=== PATIENT | female | born 1995 | race Caucasian/White ===

== ENCOUNTER 2017-09-15 20:17 | Emergency (ER) | payer MEDICAID ==
[~2017-09-15] VITALS: Ht 162.6 cm; Wt 76.0 kg
[~2017-09-15 20:17] MED LIST: ALPR.25 PO; IBUP800 PO; PRENTAB72 PO
[2017-09-15 20:19] VITALS: BP 143/92; PULSE 133; RESP 16; TEMP 98.8; O2SAT 100
--- NOTE | 2017-09-15 21:10 | PD ---
HPI Chief Complaint: Related Problem Time Seen by Provider: 20:35 Travel History International Travel<30 days: No Contact w/Intl Traveler<30days: No Traveled to known affect area: No History of Present Illness HPI 21-year-old female that presents to the ED for evaluation of lower abdominal pain with vaginal bleeding. Per patient she is about 6 weeks per last menstrual period as well as test performed on a different hospital. Per patient about a week ago she developed some lower abdominal pain and she had no bleeding at the time but she was told that she had any bleeding she was to come get evaluated. The patient she's had a stillbirth on her last and this is her second . She states that the bleeding has been substantial. She states that the lower abdominal pain is more on the right than the left bilateral as well. Per patient the pain is 4 out of 10. She is concerned mainly because of the bleeding. She does not know her blood type. She denies any chest pain or shortness of breath. No nausea or vomiting. No allergies to medication. No history of surgeries to the abdomen. PFSH Past Medical History Medical History: Denies Significant Hx ?: Past Surgical History Surgical History: No Previous Surgery Social History Alcohol Use: No Tobacco Use: No Substance Use: No Allergies-Medications (Allergen,Severity, Reaction): Coded Allergies: No Known Allergies (Unverified Adverse Reaction, Unknown, 09/15/17) Reported Meds & Prescriptions Reported Meds & Active Scripts Active Metronidazole Topical 0.75 % Cream 1 Applic TOPICAL BID 5 Days Xanax 0.25 Mg (Alprazolam) Alprazolam 0.25 mg Tab 0.25 Mg PO Q6H PRN Motrin 800 Mg Tab (Ibuprofen) 800 Mg Tab 800 Mg PO Q8HR Reported ( Vit W/ Ferrous Fumara) Tab 1 PO DAILY Review of Systems Except as stated in HPI: all other systems reviewed are Neg Physical Exam Narrative GENERAL: SKIN: Warm and dry. HEAD: Atraumatic. Normocephalic. EYES: Pupils equal and round. No scleral icterus. No injection or drainage. ENT: No nasal bleeding or discharge. Mucous membranes pink and moist. Tongue is midline. No uvula deviation. NECK: Trachea midline. No JVD. CARDIOVASCULAR: Regular rate and rhythm. No murmurs, S3, S4. RESPIRATORY: No accessory muscle use. Clear to auscultation. Breath sounds equal bilaterally. GASTROINTESTINAL: Abdomen soft, non-tender, nondistended. Hepatic and splenic margins not palpable. Genital exam: MUSCULOSKELETAL: Extremities without clubbing, cyanosis, or edema. No obvious deformities. Full range of motion of the upper and lower extremities bilaterally. 2+ pulses bilaterally. NEUROLOGICAL: Awake and alert. No obvious cranial nerve deficits. Motor grossly within normal limits. Five out of 5 muscle strength in the arms and legs. Normal speech. PSYCHIATRIC: Appropriate mood and affect; insight and judgment normal. Data Data Last Documented VS Vital Signs Date Time Temp Pulse Resp B/P (MAP) Pulse Ox O2 Delivery O2 Flow Rate FiO2 09/15/17 20:19 98.8 133 16 143/92 (109) 100 Room Air Orders Orders Beta Hcg (Quant/Titer) (09/15/17 20:35) Complete Blood Count With Diff (09/15/17 20:35) Basic Metabolic Panel (Bmp) (09/15/17 20:35) Complete Rh (09/15/17 20:35) Us Pelvis (Ques Pr/Ect)W Trans (09/15/17 ) Urinalysis - C+S If Indicated (09/15/17 20:35) Iv Access Insert/Monitor (09/15/17 20:35) Ecg Monitoring (09/15/17 20:35) Ed Urine Pregnancytest Poc (09/15/17 20:35) Type And Screen (09/15/17 20:35) Wet Prep Profile (09/15/17 21:15) Gc And Chlamydia Pcr (09/15/17 21:42) Ed Discharge Order (09/15/17 22:51) Labs Laboratory Tests Test 09/15/17 20:50 09/15/17 20:55 09/15/17 21:40 09/15/17 21:45 Blood Urea Nitrogen 9 MG/DL Creatinine 0.82 MG/DL Random Glucose 88 MG/DL Calcium Level 8.7 MG/DL Sodium Level 136 MEQ/L Potassium Level 3.2 MEQ/L Chloride Level 103 MEQ/L Carbon Dioxide Level 23.1 MEQ/L Anion Gap 10 MEQ/L Estimat Glomerular Filtration Rate 89 ML/MIN Human Chorionic Gonadotropin, Quant 43855 MIU/ML Urine Color COLORLESS Urine Turbidity CLEAR Urine pH 6.5 Urine Specific [place] 1.002 Urine Protein NEG mg/dL Urine Glucose (UA) NEG mg/dL Urine Ketones NEG mg/dL Urine Occult Blood TRACE Urine Nitrite NEG Urine Bilirubin NEG Urine Urobilinogen LESS THAN 2.0 MG/DL Urine Leukocyte Esterase NEG Urine RBC LESS THAN 1 /hpf Urine WBC 1 /hpf Urine Squamous Epithelial Cells <1 /hpf Urine Bacteria RARE /hpf Microscopic Urinalysis Comment CULT NOT INDICATED Clue Cells (Wet Prep) PRESENT Vaginal Trichomonas (Wet Prep) NONE SEEN Vaginal Yeast (Wet Prep) NONE SEEN White Blood Count 7.5 TH/MM3 Red Blood Count 4.23 MIL/MM3 Hemoglobin 12.4 GM/DL Hematocrit 36.2 % Mean Corpuscular Volume 85.5 FL Mean Corpuscular Hemoglobin 29.2 PG Mean Corpuscular Hemoglobin Concent 34.2 % Red Cell Distribution Width 13.4 % Platelet Count 174 TH/MM3 Mean Platelet Volume 9.2 FL Neutrophils (%) (Auto) 56.9 % Lymphocytes (%) (Auto) 34.6 % Monocytes (%) (Auto) 7.2 % Eosinophils (%) (Auto) 0.8 % Basophils (%) (Auto) 0.5 % Neutrophils # (Auto) 4.2 TH/MM3 Lymphocytes # (Auto) 2.6 TH/MM3 Monocytes # (Auto) 0.5 TH/MM3 Eosinophils # (Auto) 0.1 TH/MM3 Basophils # (Auto) 0.0 TH/MM3 CBC Comment DIFF FINAL Differential Comment MDM Medical Decision Making Medical Screen Exam Complete: Yes Emergency Medical Condition: Yes Medical Record Reviewed: Yes Interpretation(s) CBC & BMP Diagram 09/15/17 20:50 Calcium Level 8.7 09/15/17 21:45 Beta of 10,000 Wet prep positive for clue cells Last Impressions Pelvis Ultrasound 09/15/17 0000 Signed Impressions: Service Date/Time: Friday, September 15, 2017 21:45 - CONCLUSION: Early gestational sac at 5 weeks one day seen in the endometrial cavity. There is a 2.2 cm hypoechoic area in the right ovary likely related to the corpus luteum. Brandon Rico MD Differential Diagnosis Vaginal bleeding versus miscarriage versus ectopic versus abdominal pain Narrative Course 21-year-old female that presents to the ED for evaluation of vaginal bleeding. Patient was properly examined and was found to have signs and symptoms concerning for miscarriage versus ectopic . Labs and imaging ordered. Labs and imaging were positive for about 5 weeks as well as bacteria vaginosis. Patient was told results. Case discussed in my attending. Patient will be started on metronidazole topical to help with symptoms. I strongly recommended that she gets rechecked in 2 days to make sure she does not have a miscarriage is this still can be a possibility. She was told of the possible side effects of the medications. She was told to follow up closely with [facility]. See ED for worsening symptoms. Diagnosis Primary Impression: Bacterial vaginosis Additional Impression: IUP (intrauterine ), incidental Patient Instructions: General Instructions Additional Instructions: Apply medication as prescribed. Follow-up with [facility]. Recheck in 48 hours to make sure to a beta numbers are going up. See ED worsening symptoms. Tylenol for pain as needed. Med/Other Pt SpecificInfo: Prescription(s) given Scripts Metronidazole Topical (Metronidazole Topical) 0.75 % Cream 1 APPLIC TOPICAL BID for Infection for 5 Days, #1 TUBE 0 Refills Prov: Tip Thomas MD 09/15/17 Disposition: 01 DISCHARGE HOME Condition: Stable Cristobal Arellano Sep 15, 2017 21:10
[2017-09-15 21:11] LABS: BACTERIA, URINE RARE /hpf; BLOOD, URINE TRACE (NEG); COMMENT (UR) CULT NOT INDICATED; CULTURE IF INDICATED CULT NOT INDICATED; GLUCOSE,URINE NEG (NEG); KETONE, URINE NEG (NEG); NITRITE,URINE NEG (NEG); PH, URINE 6.5 (5.0-8.5); SQUAMOUS EPITHELIAL CELL URINE <1 /hpf (0-5); URINE COLOR COLORLESS (YELLW/STRAW)
[2017-09-15 21:24] LABS: BICARBONATE 23.1 MEQ/L (21.0-32.0); POTASSIUM 3.2 MEQ/L (3.5-5.1)
[2017-09-15 22:19] LABS: AUTOMATED NEUTROPHIL # 4.2 TH/MM3 (1.8-7.7); BASOPHIL % 0.5 % (0.0-2.0); EOSINOPHIL # 0.1 TH/MM3 (0-0.4); EOSINOPHIL % 0.8 % (0.0-4.0); HEMATOCRIT 36.2 % (35.0-46.0); HEMO FLAGS DIFF FINAL; LYMPH % 34.6 % (9.0-44.0); LYMPHOCYTE # 2.6 TH/MM3 (1.0-4.8); MEAN CELL VOLUME 85.5 FL (80.0-100.0); MEAN CORPUSCULAR HEMOGLOBIN 29.2 PG (27.0-34.0); MEAN CORPUSCULAR HGB CONC 34.2 % (32.0-36.0); MONO % 7.2 % (0.0-8.0); NEUT % 56.9 % (16.0-70.0); PLATELET COUNT 174 TH/MM3 (150-450); RED BLOOD COUNT 4.23 MIL/MM3 (4.00-5.30); RED CELL DISTRIBUTION WIDTH 13.4 % (11.6-17.2); WHITE BLOOD COUNT 7.5 TH/MM3 (4.0-11.0)
--- NOTE | 2017-09-15 22:39 | RADRPT ---
EXAM DATE/TIME: 09/15/2017 21:45 [facility] COMPARISON: No previous studies available for comparison. INDICATIONS : Pelvic pain and bleeding with . LAB(S): Beta-hC MEDICAL HISTORY : . Stillborn at 32 weeks with gastroschisis. SURGICAL HISTORY : None. ENCOUNTER: Initial ACUITY: 1 day PAIN SCORE: 7/10 LOCATION: Bilateral pelvis MEASUREMENTS: UTERUS: 8.8 x 5.8 x 4.4 cm ENDOMETRIAL STRIPE: 14 mm RIGHT OVARY: 3.3 x 2.7 x 2.0 cm LEFT OVARY: 2.3 x 1.6 x 1.7 cm FREE FLUID: Yes Trace in posterior cul de sac. CROWN RUMP LENGTH: 0.19 cm = too early today FHR: Non visualized. FINDINGS: UTERUS: There is a gestational sac in the endometrial cavity measuring 1.2 x 0.8 x 1.4 cm corresponding to a gestational age of 5 weeks one day. An embryonic pole and yolk sac are seen. The crown rump length is 0.2 cm. cardiac activity is not seen at this time. There are nabothian cysts in the cervix. RIGHT OVARY: There is a 2.2 x 1.9 x 1.7 cm hypoechoic area seen at the right ovary likely related to the corpus rob teum. LEFT OVARY: Ovary contains no mass or significant cystic lesion. MISCELLANEOUS: There is minimal free fluid seen. CONCLUSION: Early gestational sac at 5 weeks one day seen in the endometrial cavity. There is a 2.2 cm hypoechoic area in the right ovary likely related to the corpus luteum. Brandon Rico MD on September 15, 2017 at 22:34 Board Certified Radiologist. This report was verified electronically.
[2017-09-15] MEDS ORDERED: METR0.752 TOPICAL (22:51)
[2017-09-15 23:09] VITALS: BP 122/77
[2017-09-16 00:02] LABS: CHLAMYDIA PCR NOT DETECTED (NOT DETECT); NEISSERIA PCR NOT DETECTED (NOT DETECT)
== END 2017-09-15 23:10 | disposition home or self-care (01) ==
LOC: NEPD 20:17
DX: O23.591 Infection of other part of genital tract in pregnancy, first trimester (principal); B96.89 Other specified bacterial agents as the cause of diseases classified elsewhere; Z3A.01 Less than 8 weeks gestation of pregnancy
CPT/HCPCS: 76700; 76817; 80048; 81001; 84702; 85025; 86850; 86900; 86901; 87210; 87491; 87591; 99284

== ENCOUNTER 2017-12-01 16:01 | Emergency (ER) | payer MEDICAID ==
[~2017-12-01 16:01] MED LIST changes: +METR0.752 TOPICAL
--- NOTE | 2017-12-01 16:50 | PD ---
HPI Chief Complaint Pelvic pressure and pain for 1 day Date Seen: Dec 01, 2017 Time Seen: 16:40 Travel History International Travel<30 Days: No Contact w/Intl Traveler<30Days: No Known Affected Area: No History of Present Illness HPI Patient is 22-year-old L0 at 16 weeks and [address] Mesa who presents complaining of pelvic pressure and pain for 1 day. She was seen in our office yesterday and was fine but then around noon today began having pressure pain. She states that she has no bleeding or leakage of fluid. heart tones are in the 140s Weeks Gestation: 16 Para: 1 : 2 History Obstetric History Obstetric History First baby delivered had gastroschisis and did not survive Social History Alcohol Use: No Tobacco Use: No Substance Abuse: No Allergies-Medications (Allergen,Severity, Reaction): Coded Allergies: No Known Allergies (Unverified Adverse Reaction, Unknown, 09/15/17) Home Meds Active Scripts Metronidazole Topical (Metronidazole Topical) 0.75 % Cream, 1 APPLIC TOPICAL BID for Infection for 5 Days, #1 TUBE 0 Refills Prov:Tip Thomas MD 09/15/17 Alprazolam (Xanax 0.25 Mg) Alprazolam 0.25 mg Tab, 0.25 MG PO Q6H Y for ANXIETY , #30 TAB Prov:Zee Early MD 05/27/16 Ibuprofen (Motrin 800 Mg Tab) 800 Mg Tab, 800 MG PO Q8HR for Pain Management, # 20 TAB Prov:Zee Early MD 05/27/16 Reported Medications Vit W/ Ferrous Fumara () Tab, 1 PO DAILY, TAB 05/25/16 Review of Systems General / Constitutional: No: Fever, Weight Gain, Chills, Other Eyes: No: Diploplia, Blurred Vision, Visual changes, Pain, Photophobia HENT: No: Headaches, Vertigo, Lightheadedness Cardiovascular: No: Irregular Rhythm, Chest Pain or Discomfort, Palpitations, Tachycardia, Syncope, Varicosities, Edema, Cyanosis Respiratory: No: Cough, Short of Breath, Other Gastrointestinal: Abdominal Pain, No: Nausea, Vomiting, Diarrhea Genitourinary: No: Decreased Urinary Output, Oliguria Musculoskeletal: No: Limited ROM, Weakness, Cramping, Edema, Pain Skin: No Rash, No Itching, No Dryness, No Lumps, No Change in Pigmentation, No Change in Nails, No Alopecia, No Lesions Neurologic: No: Weakness, Dizziness, Syncope, Focal Abnormalities, Coordination Problem, Headache, Slurred Speech, Seizures Psychiatric: No: Depression, Suicidal Ideations, Homicidal Ideation Endocrine: No: Heat Intolerance, Cold Intolerance, Polydipsia, Polyuria, Other Physical Exam Narrative GENERAL: Well-nourished, well-developed patient. SKIN: Warm and dry. HEAD: Normocephalic and atraumatic. EYES: No scleral icterus. No injection or drainage. ENT: No nasal drainage noted. Mucous membranes pink. Airway patent. NECK: Supple, trachea midline. No JVD. CARDIOVASCULAR: Regular rate and rhythm without murmurs, gallops, or rubs. RESPIRATORY: Breath sounds equal bilaterally. No accessory muscle use. BREASTS: Bilateral exam showed no masses , no retractions, no nipple discharge. ABDOMEN/GI: Abdomen soft, non-tender, bowel sounds present, no rebound, no guarding Gravid to [-17] weeks size Fundal Height: [-below umbilicus] GENITOURINARY: External Genitalia: intact and normal in appearance BUS glands: [-] Cervix: [-post] Dilatation: [closed-] Effacement: [-thick] Station: [-3] Membranes: [intact ] Uterine Contractions: [none-] FHT's: 140s EXTREMITIES: No cyanosis or edema. BACK: Nontender without obvious deformity. No CVA tenderness. NEUROLOGICAL: Awake and alert. Motor and sensory grossly within normal limits. Five out of 5 muscle strength in all muscle groups. Normal speech. Data Data Labs Urine dip on OB ED is negative for infection MDM Interpretation(s) 22-year-old G 2 P1 L0 at 16-17 weeks with pressure in the pelvis and pelvic pain for 1 day. She has no leakage of fluid or bleeding. Urinalysis negative. heart tones 140s. Cervical exam was long thick and closed high in the pelvis. No pressure felt vaginally. This quite likely round ligament pain. Plan Plan for patient to be at bedrest for the next 1-2 days as much as possible heating pad on low across the lower abdomen is hopeful, increase her fluid liquids to stay hydrated use Tylenol as needed. Follow-up with Dr. Mesa. Diagnosis Diagnosis: Primary Impression: Pain of round ligament affecting , antepartum Additional Impression: 17 weeks gestation of Disposition: 01 DISCHARGE HOME Condition: Stable Williams Greenfield II, MD Dec 01, 2017 16:50
== END 2017-12-01 17:50 | disposition home or self-care (01) ==
LOC: HOBED 16:05
DX: O26.892 Other specified pregnancy related conditions, second trimester (principal); R10.2 Pelvic and perineal pain; Z3A.16 16 weeks gestation of pregnancy
CPT/HCPCS: 99284

== ENCOUNTER → 2017-12-15 | Outpatient (CLI) | payer MEDICAID | LOC: HPND 10:58 | PROVIDERS: ATTEND Obstetrics & Gynecology | DX: O09.292 Supervision of pregnancy with other poor reproductive or obstetric history, second trimester (principal) | CPT/HCPCS: 76811 ==

== ENCOUNTER → 2018-01-13 | Outpatient (CLI) | payer MEDICAID | LOC: HPND 09:51 | PROVIDERS: ATTEND Obstetrics & Gynecology | DX: O09.292 Supervision of pregnancy with other poor reproductive or obstetric history, second trimester (principal) | CPT/HCPCS: 76816 ==

== ENCOUNTER 2018-03-14 14:11 | Emergency (ER) | payer MEDICAID ==
--- NOTE | 2018-03-14 15:19 | PD ---
HPI Chief Complaint c/o headache, dizziness, blurred vision Date Seen: March 14, 2018 Time Seen: 15:00 Travel History International Travel<30 Days: No Contact w/Intl Traveler<30Days: No Known Affected Area: No History of Present Illness HPI 22-year-old at [address] Mesa @ [facility] for care and call their office because he was having dizziness headache and blurred vision and checked her blood pressure at home and it was 140 / 80s and she was told to come to the hospital and she says her blood pressure usually rate he runs 110 / 60s, she has had no problem with any of these symptoms prior to today in she has had no history of hypertension in this or the first . There is no bleeding, leakage, or contraction pain. NST is reactive, no contractions seen. Here on OB ED her blood pressure initially was 144/92 and then subsequent blood pressures all within normal limits 130/80 range Weeks Gestation: 31 Para: 1 : 2 History Obstetric History Obstetric History 1 vaginal delivery in the past and no hypertension or preeclampsia with that Social History Alcohol Use: No Tobacco Use: No Substance Abuse: No Allergies-Medications (Allergen,Severity, Reaction): Coded Allergies: No Known Allergies (Unverified Adverse Reaction, Unknown, 09/15/17) Home Meds Active Scripts Metronidazole Topical (Metronidazole Topical) 0.75 % Cream, 1 APPLIC TOPICAL BID for Infection for 5 Days, #1 TUBE 0 Refills Prov:Tip Thomas MD 09/15/17 Alprazolam (Xanax 0.25 Mg) Alprazolam 0.25 mg Tab, 0.25 MG PO Q6H Y for ANXIETY , #30 TAB Prov:Zee Early MD 05/27/16 Ibuprofen (Motrin 800 Mg Tab) 800 Mg Tab, 800 MG PO Q8HR for Pain Management, # 20 TAB Prov:Zee Early MD 05/27/16 Reported Medications Vit W/ Ferrous Fumara () Tab, 1 PO DAILY, TAB 05/25/16 Review of Systems General / Constitutional: No: Fever, Weight Gain, Chills, Other Eyes: Blurred Vision, No: Diploplia, Visual changes, Pain, Photophobia HENT: Headaches, No: Vertigo, Lightheadedness Cardiovascular: No: Irregular Rhythm, Chest Pain or Discomfort, Palpitations, Tachycardia, Syncope, Varicosities, Edema, Cyanosis Respiratory: No: Cough, Short of Breath, Other Gastrointestinal: No: Nausea, Vomiting, Diarrhea Genitourinary: No: Decreased Urinary Output, Oliguria Musculoskeletal: No: Limited ROM, Weakness, Cramping, Edema, Pain Skin: No Rash, No Itching, No Dryness, No Lumps, No Change in Pigmentation, No Change in Nails, No Alopecia, No Lesions Neurologic: Dizziness, No: Weakness, Syncope, Focal Abnormalities, Coordination Problem, Headache, Slurred Speech, Seizures Psychiatric: No: Depression, Suicidal Ideations, Homicidal Ideation Endocrine: No: Heat Intolerance, Cold Intolerance, Polydipsia, Polyuria, Other Physical Exam Narrative GENERAL: Well-nourished, well-developed patient. SKIN: Warm and dry. HEAD: Normocephalic and atraumatic. EYES: No scleral icterus. No injection or drainage. ENT: No nasal drainage noted. Mucous membranes pink. Airway patent. NECK: Supple, trachea midline. No JVD. CARDIOVASCULAR: Regular rate and rhythm without murmurs, gallops, or rubs. RESPIRATORY: Breath sounds equal bilaterally. No accessory muscle use. BREASTS: Bilateral exam showed no masses , no retractions, no nipple discharge. ABDOMEN/GI: Abdomen soft, non-tender, bowel sounds present, no rebound, no guarding Gravid to [-31] weeks size Fundal Height: [-31] GENITOURINARY: FHT's: Category: [-1] Baseline: [-133] Reactive: [R-] Variability: [mod-] Decels: [-0] EXTREMITIES: No cyanosis or edema. BACK: Nontender without obvious deformity. No CVA tenderness. NEUROLOGICAL: Awake and alert. Motor and sensory grossly within normal limits. Five out of 5 muscle strength in all muscle groups. Normal speech. Data Data Orders Orders Cbc No Diff, Includes Plts (03/14/18 14:59) Comprehensive Metabolic Panel (03/14/18 14:59) Uric Acid (03/14/18 14:59) Urinalysis - C+S If Indicated (03/14/18 14:59) Protein Creat Ratio, Random Ur (03/14/18 15:09) Labs Urine on OB ED was negative for protein negative for infection [facility] blood work all WNL MDM Interpretation(s) Patient is 22-year-old at 31 weeks who has a one-day history of headache dizziness and blurred vision with a slightly elevated blood pressure at home here on OB ED her first pressure was borderline [140/90] all the rest have been normal , UA no protein , all [facility] lab WNL Plan D/C home to bedrest as much as possible , F/U with Dr Mesa Diagnosis Diagnosis: Primary Impression: 31 weeks gestation of Additional Impressions: Headache around the eyes Dizziness Vision blurred Borderline blood pressure Disposition: DISCHARGE HOME Condition: Stable Williams Greenfield II, MD March 14, 2018 15:19
[2018-03-14 16:23] LABS: HEMATOCRIT 35.6 % (35.0-46.0); HEMOGLOBIN 12.1 GM/DL (11.6-15.3); MEAN CELL VOLUME 84.7 FL (80.0-100.0); MEAN CORPUSCULAR HEMOGLOBIN 28.6 PG (27.0-34.0); MEAN CORPUSCULAR HGB CONC 33.8 % (32.0-36.0); MEAN PLATELET VOLUME 9.8 FL (7.0-11.0); PLATELET COUNT 171 TH/MM3 (150-450); RED BLOOD COUNT 4.21 MIL/MM3 (4.00-5.30); RED CELL DISTRIBUTION WIDTH 13.7 % (11.6-17.2); WHITE BLOOD COUNT 8.9 TH/MM3 (4.0-11.0)
[2018-03-14 16:25] LABS: AMORPHOUS SEDIMENT, URINE RARE; BACTERIA, URINE RARE /hpf; BILIRUBIN, URINE NEG (NEG); BLOOD, URINE NEG (NEG); GLUCOSE,URINE NEG (NEG); KETONE, URINE NEG (NEG); NITRITE,URINE NEG (NEG); SQUAMOUS EPITHELIAL CELL URINE <1 /hpf (0-5); URINE COLOR COLORLESS (YELLW/STRAW); URINE LEUKOCYTE ESTERASE NEG (NEG)
[2018-03-14 17:10] LABS: BLOOD UREA NITROGEN 8 MG/DL (7-18)
[2018-03-14 17:11] LABS: ALBUMIN 2.7 GM/DL (3.4-5.0); ALKALINE PHOSPHATASE 96 U/L (45-117); AST (GOT) 11 U/L (15-37); CALCIUM 8.7 MG/DL (8.5-10.1); CREATININE 0.43 MG/DL (0.50-1.00); GLOMERULAR FILTRATION RATE 185 ML/MIN (>89); GLUCOSE,RANDOM 75 MG/DL (74-106); TOTAL PROTEIN 7.3 GM/DL (6.4-8.2)
[2018-03-14 17:12] LABS: ALT (GPT) 14 U/L (10-53); BICARBONATE 22.3 MEQ/L (21.0-32.0); CHLORIDE 106 MEQ/L (98-107); SODIUM (NA) 138 MEQ/L (136-145); TOTAL BILIRUBIN ADULT 0.2 MG/DL (0.2-1.0)
== END 2018-03-14 17:25 | disposition home or self-care (01) ==
LOC: HOBED 14:11
DX: O26.893 Other specified pregnancy related conditions, third trimester (principal); R51 Headache; R42 Dizziness and giddiness; Z3A.31 31 weeks gestation of pregnancy
CPT/HCPCS: 36415; 80053; 81001; 82570; 84156; 84550; 85027

== ENCOUNTER 2018-04-12 10:08 | Emergency (ER) | payer MEDICAID ==
--- NOTE | 2018-04-12 11:33 | PD ---
HPI Chief Complaint Abdominal cramping and diarrhea Date Seen: Apr 12, 2018 Time Seen: 11:15 Travel History International Travel<30 Days: No Contact w/Intl Traveler<30Days: No Known Affected Area: No History of Present Illness HPI 22-year-old female L0 at [address] Mesa for care presents complaining of abdominal cramping and one episode of diarrhea today. She denies bleeding or leakage of fluid or contractions. Her NST is reactive. No contractions seen on the monitor. Weeks Gestation: 35 Para: 1 : 2 History Obstetric History Obstetric History Patient is still at 28 weeks with her first that baby had gastroschisis and this baby has been scanned multiple times no anomalies seen Social History Alcohol Use: No Tobacco Use: No Substance Abuse: No Allergies-Medications (Allergen,Severity, Reaction): Coded Allergies: No Known Allergies (Unverified Adverse Reaction, Unknown, 09/15/17) Home Meds Active Scripts Metronidazole Topical (Metronidazole Topical) 0.75 % Cream, 1 APPLIC TOPICAL BID for Infection for 5 Days, #1 TUBE 0 Refills Prov:Tip Thomas MD 09/15/17 Alprazolam (Xanax 0.25 Mg) Alprazolam 0.25 mg Tab, 0.25 MG PO Q6H Y for ANXIETY , #30 TAB Prov:Zee Early MD 05/27/16 Ibuprofen (Motrin 800 Mg Tab) 800 Mg Tab, 800 MG PO Q8HR for Pain Management, # 20 TAB Prov:Zee Early MD 05/27/16 Reported Medications Vit W/ Ferrous Fumara () Tab, 1 PO DAILY, TAB 05/25/16 Review of Systems General / Constitutional: No: Fever, Weight Gain, Chills, Other Eyes: No: Diploplia, Blurred Vision, Visual changes, Pain, Photophobia HENT: No: Headaches, Vertigo, Lightheadedness Cardiovascular: No: Irregular Rhythm, Chest Pain or Discomfort, Palpitations, Tachycardia, Syncope, Varicosities, Edema, Cyanosis Respiratory: No: Cough, Short of Breath, Other Gastrointestinal: Diarrhea, Abdominal Pain, No: Nausea, Vomiting Genitourinary: No: Decreased Urinary Output, Oliguria Musculoskeletal: No: Limited ROM, Weakness, Cramping, Edema, Pain Skin: No Rash, No Itching, No Dryness, No Lumps, No Change in Pigmentation, No Change in Nails, No Alopecia, No Lesions Neurologic: No: Weakness, Dizziness, Syncope, Focal Abnormalities, Coordination Problem, Headache, Slurred Speech, Seizures Psychiatric: No: Depression, Suicidal Ideations, Homicidal Ideation Endocrine: No: Heat Intolerance, Cold Intolerance, Polydipsia, Polyuria, Other Physical Exam Narrative GENERAL: Well-nourished, well-developed patient. SKIN: Warm and dry. HEAD: Normocephalic and atraumatic. EYES: No scleral icterus. No injection or drainage. ENT: No nasal drainage noted. Mucous membranes pink. Airway patent. NECK: Supple, trachea midline. No JVD. CARDIOVASCULAR: Regular rate and rhythm without murmurs, gallops, or rubs. RESPIRATORY: Breath sounds equal bilaterally. No accessory muscle use. BREASTS: Bilateral exam showed no masses , no retractions, no nipple discharge. ABDOMEN/GI: Abdomen soft, non-tender, bowel sounds present, no rebound, no guarding Gravid to [-35] weeks size Fundal Height: [35-] GENITOURINARY: External Genitalia: intact and normal in appearance BUS glands: [-] Cervix: [-post] Dilatation: [0-] Effacement: [-0] Station: [-3] Presentation: [vtx-] Membranes: [intact Uterine Contractions: [-none] FHT's: Category: [1-] Baseline: [133-] Reactive: [R-] Variability: [mod-] Decels: [-0] EXTREMITIES: No cyanosis or edema. BACK: Nontender without obvious deformity. No CVA tenderness. NEUROLOGICAL: Awake and alert. Motor and sensory grossly within normal limits. Five out of 5 muscle strength in all muscle groups. Normal speech. Data Data Labs Urine dip on OB ED negative MDM Interpretation(s) 22-year-old female at 35 weeks presents with abdominal cramping and diarrhea. NST is reactive cervix is closed and no contractions seen, UA negative Plan Plan to discharge the patient home, use Tylenol as needed, p.o. hydration, bed rest with heating pad or hot bath and follow-up with her OB provider Diagnosis Diagnosis: Primary Impression: Abdominal pain during in third trimester Additional Impressions: 35 weeks gestation of Diarrhea Disposition: DISCHARGE HOME Condition: Stable Patient Instructions: General Instructions, at 35 to 38 Weeks (ED) Additional Instructions: drink 8-10 glasses of water a day. May take tylenol for cramping and emodium for diahrea. keep all appointments Departure Forms: Tests/Procedures Williams Greenfield II, MD Apr 12, 2018 11:33
[2018-04-12 13:06] LABS: BILIRUBIN, URINE NEG (NEG); BLOOD, URINE NEG (NEG); GLUCOSE,URINE NEG (NEG); KETONE, URINE NEG (NEG); MUCUS URINE FEW /lpf (OCC); NITRITE,URINE NEG (NEG); SQUAMOUS EPITHELIAL CELL URINE <1 /hpf (0-5); URINE COLOR LIGHT-YELLOW (YELLW/STRAW); URINE LEUKOCYTE ESTERASE NEG (NEG)
== END 2018-04-12 11:43 | disposition home or self-care (01) ==
LOC: HOBED 10:08
DX: O26.893 Other specified pregnancy related conditions, third trimester (principal); R10.9 Unspecified abdominal pain; R19.7 Diarrhea, unspecified; Z3A.35 35 weeks gestation of pregnancy
CPT/HCPCS: 59025; 81001

== ENCOUNTER 2018-05-06 16:36 | Inpatient (IN) ==
[2018-05-06] MEDS ORDERED: Sodium Chlor 0.9% Inj 500 ML IV.SIG ONE (17:59)
[2018-05-06] MEDS ORDERED: Oxytocin 30 Units/500ml Premix 30 UNITS/500 ML BAG IV.SIG ONE (17:59)
[2018-05-06] MEDS ORDERED: fentaNYL Citrate Inj 100 MCG/2 ML Ampul IV.PUSH PRN ×2 (17:59)
[2018-05-06] MEDS ORDERED: Naloxone Inj 0.4 MG/ML Vial IV.PUSH PRN (17:59)
[2018-05-06] MEDS ORDERED: Citric Acid/Sodium Citrate Liq 30 ML UDC PO SCH (18:00)
[2018-05-06 18:46] LABS: Baso % (Auto) 0.1 % (0.0-2.0); Eos % (Auto) 0.2 % (0.0-4.0); Hematocrit 36.6 % (35.0-46.0); Hemoglobin 12.3 gm/dL (11.6-15.3); Lymph # (Auto) 1.8 th/mm3 (1.0-4.8); Lymph % (Auto) 19.2 % (9.0-44.0); Mean Corpuscular HGB Conc 33.6 % (32.0-36.0); Mean Corpuscular Hemoglobin 27.7 pg (27.0-34.0); Mean Corpuscular Volume 82.4 fL (80.0-100.0); Mean Platelet Volume 10.7 fL (7.0-11.0); Mono # (Auto) 0.6 th/mm3 (0.0-0.9); Mono % (Auto) 7.1 % (0.0-8.0); Neut # (Auto) 6.7 th/mm3 (1.8-7.7); Neut % (Auto) 73.4 % (16.0-70.0); Platelet Count 168 th/mm3 (150-450); Red Blood Count 4.44 mil/mm3 (4.00-5.30); Red Cell Distribution Width 14.9 % (11.6-17.2); White Blood Count 9.1 th/mm3 (4.0-11.0)
[2018-05-06 18:53] LABS: Bacteria,Urine Rare /hpf; Bilirubin,Urine Negative (Negative); Clarity,Urine Hazy (Clear); Color,Urine Yellow (Yellw/Straw); Glucose,Urine (UA) Negative (Negative); Leukocyte Esterase,Urine Negative (Negative); Mucus,Urine Few /lpf (Occasional); Nitrite,Urine Negative (Negative); Specific Gravity,Urine 1.023 (1.002-1.035); Squamous Epithelial Cell,Urine <1 /hpf (0-5)
[2018-05-06 18:54] LABS: Amphetamine Urine With Conf Neg (Neg); Benzodiazepine Urine With Conf Neg (Neg)
[2018-05-06] MEDS: Sod Chloride 0.9% Inj 1,000 ML IV.CONT SCH (19:54)
[2018-05-06] MEDS ORDERED: Penicillin G Potassium Inj 5,000,000 UNIT in Sodium Chloride 0.9% Inj 100 ML IV.SIG ONE (20:00)
--- NOTE | 2018-05-06 23:30 | P.OBGPN ---
To bedside to evaluate pt; on admission pt jeronimo too frequently for cervidil, SVE per RN on admit /-2; on my exam SVE , AROM'd clear, pt ejronimo q2-3 min on own; expectant mgmt for now, pitocin ordered to start if no cervical change in 2-3hrs; pencillin started due to GBS +
[2018-05-06] MEDS ORDERED: fentaNYL 2MCG-Bupiv 0.125% Epi 150 ML EPIDURAL ONE (23:36)
[2018-05-07] MEDS ORDERED: fentaNYL Citrate Inj 100 MCG/2 ML Ampul EPIDURAL ONE (00:07)
[2018-05-07] MEDS ORDERED: fentaNYL 2MCG-Bupiv 0.125% Epi 150 ML EPIDURAL ONE ×2 (00:15→09:16)
[2018-05-07] MEDS ORDERED: Oxytocin 30 Units/500ml Premix 30 UNITS/500 ML BAG IV.CONT PRN (03:00)
[2018-05-07] MEDS: Penicillin G Potassium Inj 2,500,000 UNIT in Sodium Chlor 0.9% Inj 100 ML IV.SIG SCH ×3 (04:32→12:04)
[2018-05-07] MEDS: Sod Chloride 0.9% Inj 1,000 ML IV.CONT SCH (05:19)
[2018-05-07] MEDS ORDERED: Bupivacaine/Epinephrine PF Inj 0.25% 10 ML Vial ONE (06:27)
--- NOTE | 2018-05-07 09:07 | MH ---
cc: Bill Mesa MD DATE OF ADMISSION: 05/06/2018 HISTORY OF PRESENT ILLNESS: The patient is a 23-year-old female, 2, para 1,0,1,0 whose estimated date of confinement is 05/12/2018 confirmed by early ultrasound and last menstrual cycle. The patient presents with increasing symptoms of headache, blurry vision, swelling of the lower extremities and general malaise. The patient is being admitted for induction of labor due to preeclampsia with some severe features. CLINICAL COURSE: The patient had been followed with increasing weight gain due to water retention. She had gained more than 10 pounds over the last week. The patient's blood pressure ranges from 140/90-126/82. Recent laboratory investigation revealed proteinuria with a total protein of approximately 400 mg in 24 hours with an elevated protein creatinine ratio. The remainder of her lab work was unremarkable. The patient's course is marked by group B strep positive, blood type is A positive, 1-hour Glucola was normal performed at 28 weeks with a value of 95. PAST MEDICAL HISTORY: The patient denies any systemic chronic disease. States she has no prior history of surgery. ALLERGIES: SHE HAS NO KNOWN DRUG ALLERGIES. CURRENT MEDICATIONS: Include vitamins only. OBSTETRICAL HISTORY: The patient had a previous demise at 28 weeks. Infant had significant gastroschisis documented prior to delivery. The patient delivered vaginally after 3 days of induction. FAMILY HISTORY: Noncontributory. SOCIAL HISTORY: She is single, fully employed. Denies any use of alcohol, tobacco or illicit substances. PHYSICAL EXAMINATION: GENERAL: A well-appearing female in no acute distress. VITAL SIGNS: Stable. Blood pressure is 130/90, pulse and respiratory rate are normal. heart tones are in the 140s. HEENT: Shows adenopathy or thyromegaly. LUNGS: Clear in all sánchez. CARDIAC: Regular rate and rhythm. ABDOMEN: Gravid. Fundal height is 42. Cervix is Long, closed, posterior, vertex presentation documented. Recent biophysical profile was 8/8. Placenta is anterior. EXTREMITIES: Symmetrical, full range of motion. There is about a 2-3+ pitting edema, mild clonus notified. The remainder of the neurologic exam is nonfocal. ASSESSMENT/PLAN: The patient has a 39-week and 1 day single intrauterine gestation with preeclampsia with severe features. Group B strep positive. Normal 1 hour Glucola at 95. History of vaginal delivery at 28 weeks with a demise due to gastroschisis. Genetic testing during this was normal with input from maternal medicine throughout the . Cervidil induction will be initiated. Dr. Delores Montejo was notified of the patient's admission. MD DAVE Sánchez/SAE , 01:37 PM , 01:59 PM
[2018-05-07] MEDS ORDERED: Bupivacaine PF 0.25% Inj 10 ML Vial ONE ×2 (10:57→14:40)
[2018-05-07] MEDS ORDERED: Lidocaine PF 1% Inj 5 ML Syringe INFILTRATN ONE (11:12)
[2018-05-07] MEDS ORDERED: Phenylephrine/NS 1000 MCG/10ML Syringe IV.PUSH ONE (11:12)
[2018-05-07] MEDS ORDERED: Succinylcholine Inj 100 MG/5 ML Syringe IV.PUSH ONE (11:12)
--- NOTE | 2018-05-07 15:52 | P.OBGPN ---
To bedside to assess patient. SVE 8/thick (swollen)/-1; prior exam by RN showed 9cm and 0 station so pt is regressing. Also unable to tolerate pitocin with subtle later decelerations, has had to have pitocin turned off twice in past 4 hours. D/w pt and family recommendation for for arrest of labor , all amenable, team notified, to OR.
[2018-05-07] MEDS ORDERED: Morphine Sulfate PF Inj 5 MG/10 ML Ampul ONE (15:56)
[2018-05-07] MEDS ORDERED: ceFAZolin Inj 2,000 MG in Sodium Chlor 0.9% Inj 80 ML IV.SIG SCH (16:00)
[2018-05-07] MEDS ORDERED: miSOPROStol 200 MCG Tablet ONE (16:45)
[2018-05-07] MEDS ORDERED: Oxytocin 30 Units/500ml Premix 30 UNITS/500 ML BAG IV.SIG ONE (17:10)
[2018-05-07] MEDS ORDERED: Zolpidem Tartrate 5 MG Tablet PO PRN (17:10)
[2018-05-07] MEDS ORDERED: Simethicone 80 MG Chew Tablet PO PRN (17:10)
[2018-05-07] MEDS ORDERED: Acetaminophen 325 MG Tablet PO PRN (17:10)
--- NOTE | 2018-05-07 17:18 | P.OBDELI ---
Procedure Note - Pre Op Diagnosis (1) Arrested active phase of labor (2) Pre-eclampsia in third trimester (3) Term - Post Op Diagnosis (1) S/P primary low transverse (2) Pre-eclampsia in third trimester (3) Term (4) Arrested active phase of labor Performed by: Delores Montejo MD Procedure: Primary Low Transverse Section Indication for Delivery: Other (arrest of labor/arrest of dilation & descent) Informed Consent Obtained: For anesthesia, For procedure Confirmed Correct: Patient, Procedure, Site, Time-out taken Anesthesia: Epidural (was not working after pt already prepped in OR), Other ( general anesthesia administered due to non-functioning epidural) Medication Prior to Procedure: As documented in eMAR Monitoring During Procedure: Blood pressure monitoring, conveyor monitor, monitor, Pulse oximetry Urinary Catheter: ml urine output (200), Other (already in place as part of labor process) Sterile Preparation: Duraprep, In usual fashion, With drapes to expose affected area Position: Supine with wedge to right side - Operative Features Skin Incision: Pfannenstiel Uterine Incision: Low transverse w/knife / blunt ext Membranes Ruptured: Previously, Appearance of fluid (clear) Presentation: Vertex (head extended and OP) Status of Infant: Viable, Nursery present Placenta Delivered: Intact Medications: Antibiotics (ancef 2g IV preop) Estimated blood loss (mL): 500 Procedure Tolerated: Well Maternal Complications: Uterine atony (misoprostol 600 mcg placed rectally with good result) Maternal Condition: Stable Baby Condition: Stable Procedure in Detail: see dictated op note for full details - : Male, Single Male A Delivery Date: 05/07/18 Delivery Time: 16:05 Weight: 3.175 kg Delivery of : Uneventful score (1 min): 3 score (5 min): 7 score (10 min): 8
--- NOTE | 2018-05-07 18:02 | MP ---
cc: Delores Montejo MD, Marjorie MD DATE OF OPERATION: 05/07/2018 PREOPERATIVE DIAGNOSES: 1. Lux at 39 weeks and 2 days. 2. Gestational hypertension with preeclampsia in the third trimester. 3. Failed induction of labor, arrest of descent and dilation. POSTOPERATIVE DIAGNOSES: 1. Lux at 39 weeks and 2 days. 2. Gestational hypertension with preeclampsia in the third trimester. 3. Failed induction of labor, arrest of descent and dilation. 4. Postoperative day number 0, status post primary low transverse delivery. INDICATIONS: Sherin Fonseca is a 22-year-old 2, para 1-1-0-1, who has been seen and evaluated in the office throughout her with blood pressures slowly increasing and proteinuria developing on a 24-hour urine. She ruled in for preeclampsia, but did not have symptoms and labs were within normal limits initially. When she presented to the office on Wednesday05/06/18, she complained of new severe headache and edema, was found to have mildly elevated pressures and continued proteinuria, so she was diagnosed with preeclampsia with severe features and recommendation was made for induction of labor. The patient was admitted on the evening of 05/06/18, was supposed to have Cervidil for induction method but on arrival to the unit, she was jeronimo on her own and was already 3 cm. Pitocin was started. The patient progressed slowly overnight. Her water was broken. She did progress to 9 cm, but after a period of a nonreassuring heart tones where Pitocin had to be turned off and maternal oxygen by face mask as well as repositioning was performed, the cervix was felt to be swollen and dilation went from 9 cm to 8 cm with station remaining high at -1. It was discussed with the patient that due to the lack of progress in labor and intolerance of labor that delivery was indicated, so the patient was taken for procedure. PROCEDURE PERFORMED: Primary low transverse delivery. SURGEON: Delores Montejo MD TYPE OF ANESTHESIA: The patient had epidural in place as part of the labor process. When she was brought back to the operating room, she was redosed, but unfortunately this was ineffective and the patient still could feel all testing maneuvers during the testing process after she had already been prepped and draped. It was discussed with the patient the options including attempt to replace epidural versus general anesthesia. The patient opted for general anesthesia and so general anesthesia was then performed. ESTIMATED BLOOD LOSS: 500 mL IV FLUID REPLACEMENT: 1200 mL URINE OUTPUT: 200 mL of clear urine drained in the Verde bag at the end of the procedure. PROPHYLAXIS: SCDs were on and functioning throughout the case. Ancef 2g IV was given preoperatively. Standard penicillin therapy had been given throughout patient' s labor process due to GBS positive status. COMPLICATIONS: Some uterine atony was encountered after delivery of the with vigorous massage and rectal misoprostol of 600 mcg used to alleviate this. COUNTS: Sponge, lap, instrument and needle correct x2 at the conclusion of the procedure. SPECIMEN: None. INTRAOPERATIVE FINDINGS: Include a viable male infant weighing 7 pounds, Apgars of 3, 7 and 8. 's head was hyperextended in the canal, but was able to be successfully flexed and delivered. The uterus, bilateral adnexa appeared within normal limits. Placenta was intact. Amniotic fluid was clear. PROCEDURE IN DETAIL: After reviewing the informed consent, the patient was taken to the operating suite, where a timeout was performed to identify the patient, the planned procedure and any known allergies to drugs or drug products. Epidural and Verde catheter were already in place as part of the labor process. When epidural was found to not be working correctly, the patient was placed under general anesthesia after she was in dorsal supine position with a bump under her right side. Anesthesia was then found to be adequate. Using a scalpel, a Pfannenstiel type skin incision was made and carried down through the underlying layer of fascia sharply. The fascia was then bluntly. Rectus muscles were bluntly. The peritoneum was entered sharply with Chandler scissors and incision was extended bluntly. A bladder blade was placed. A low transverse uterine incision was made with the scalpel. This was extended bluntly. 's head was grasped and flexed out through the incision. With gentle fundal pressure and the rest of the infant readily delivered. The infant was crying upon delivery. Nursery was present for resuscitation. Delayed cord clamping of 45 seconds was performed. Infant was then handed off to awaiting nursery staff. The placenta was delivered with gentle cord traction and fundal massage. Uterus was exteriorized and cleared of all clots and debris with sterile moist lap sponges. Uterine incision was repaired in a double-layer with #1 chromic, first in a running locked layer then in an imbricating fashion. Uterine atony was encountered; with vigorous uterine massage and misoprostol 600 mcg placed rectally the atony resolved. The uterus was then returned to the abdomen after irrigation with suctioned in the posterior cul-de-sac had been performed. Additional irrigation with suction of the gutters was performed. A layer of Intercede was placed over the repaired hysterotomy to act as an adhesive barrier. The peritoneum was closed in a running layer with 2-0 chromic. The fascia was closed in a running layer with #1 Vicryl. Subcutaneous tissue was irrigated copiously and suctioned. A series of interrupted sutures using 2-0 chromic was used to close the subcutaneous layer and the skin was closed in a subcuticular fashion with 3-0 Monocryl. A pressure dressing was placed. The procedure concluded at this point. The patient was awoken from general anesthesia without complication. She is now resting in the Postanesthesia Care Unit with her infant who is nursery status. DISPOSITION Patient's estimated length of stay is 2-3 postoperative days. Infant is nursery status. MD AUBRIE Kang/ , 05:26 PM , 06:01 PM MTDD
[2018-05-07] MEDS ORDERED: Naloxone Inj 0.4 MG/ML Vial IV.PUSH PRN ×2 (19:22→19:27)
[2018-05-07] MEDS ORDERED: Oxytocin 30 Units/500ml Premix 30 UNITS/500 ML BAG IV.SIG PRN (22:11)
[2018-05-08] MEDS: Ibuprofen 600 MG Tablet PO PRN ×3 (04:42→16:53)
[2018-05-08 08:57] LABS: Baso % (Auto) 0.1 % (0.0-2.0); Hematocrit 32.2 % (35.0-46.0); Hemoglobin 10.6 gm/dL (11.6-15.3); Lymph # (Auto) 1.9 th/mm3 (1.0-4.8); Lymph % (Auto) 12.4 % (9.0-44.0); Mean Corpuscular HGB Conc 32.9 % (32.0-36.0); Mean Corpuscular Hemoglobin 26.8 pg (27.0-34.0); Mean Corpuscular Volume 81.5 fL (80.0-100.0); Mean Platelet Volume 9.7 fL (7.0-11.0); Mono % (Auto) 6.3 % (0.0-8.0); Neut # (Auto) 12.5 th/mm3 (1.8-7.7); Neut % (Auto) 81.2 % (16.0-70.0); Platelet Count 156 th/mm3 (150-450); Red Blood Count 3.95 mil/mm3 (4.00-5.30); White Blood Count 15.4 th/mm3 (4.0-11.0)
--- NOTE | 2018-05-08 09:50 | P.PNOB ---
Subjective Post op day: 1 Interval history: s/p primary LTCD for arrest of labor/ intolerance of labor Objective Vital Signs/I&O: Vital Signs 05/07/18 10:01 05/07/18 10:14 05/07/18 10:31 Temperature 99.7 F H Pulse Rate 110 H Respiratory Rate Blood Pressure 120/87 135/89 05/07/18 11:07 05/07/18 11:31 05/07/18 12:01 Temperature 100.0 F H Pulse Rate 120 H 102 H Respiratory Rate Blood Pressure 130/65 123/69 05/07/18 12:31 05/07/18 12:45 05/07/18 14:02 Temperature 99.1 F Pulse Rate 90 88 Respiratory Rate Blood Pressure 92/48 L 113/72 05/07/18 14:15 05/07/18 15:22 05/07/18 17:15 Temperature 98.7 F 98.6 F Pulse Rate 92 H 120 H Respiratory Rate 18 18 Blood Pressure 128/73 83/50 L 05/07/18 17:24 05/07/18 17:35 05/07/18 17:48 Temperature Pulse Rate 123 H 94 H 97 H Respiratory Rate 17 20 Blood Pressure 116/57 L 101/54 L 110/53 L 05/07/18 18:05 05/07/18 18:15 05/07/18 19:00 Temperature 98.4 F 97.6 F Pulse Rate 85 94 H 82 Respiratory Rate 18 17 18 Blood Pressure 111/57 L 95/54 L 116/60 05/07/18 23:37 05/08/18 04:00 05/08/18 08:00 Temperature 98.3 F 98.2 F 97.8 F Pulse Rate 109 H 113 H 96 H Respiratory Rate 18 18 18 Blood Pressure 112/74 120/65 104/62 Intake & Output 05/07/18 05/08/18 05/08/18 18:59 06:59 18:59 Intake Total 100 / 100 500 / 500 Balance 100 / 100 500 / 500 Weight 109 kg Intake: IV 100 / 100 500 / 500 Pitocin 30 Units/NS 500 ml 500 / 500 Premix 30 units In 500 ml @ 100 mls/hr IV.SIG PRN PRN Rx#: [id number] Pfizerpen-G Inj 2,500,000 UNIT 100 / 100 In NS Inj 100 ML @ 200 mls/hr IV.SIG Q4H [facility] Rx#:[id number] Result Diagrams: 05/08/18 08:20 Objective Remarks: GENERAL: Well-nourished, well-developed patient. CARDIOVASCULAR: Regular rate and rhythm without murmurs, gallops, or rubs. RESPIRATORY: Breath sounds equal bilaterally. No accessory muscle use. ABDOMEN/GI: Abdomen soft, non-tender, bowel sounds present. Incision: bandage in place; Clean, dry and intact. Fundus: Firm, non-tender at umbilicus. GENITOURINARY: Light bleeding. EXTREMITIES: No cyanosis or edema, non-tender, without signs of DVT. Medications and IVs: Active Medications Acetaminophen (Tylenol) 650 mg PO Q6H PRN PRN Reason: PAIN SCALE 1 TO 2 Diphenhydramine HCl (Benadryl) 50 mg PO Q6H PRN PRN Reason: MILD TO MODERATE ITCHING Stop: 05/08/18 19:21 Diphenhydramine HCl (Benadryl Inj) 25 mg IV.PUSH Q6H PRN PRN Reason: MILD TO MODERATE ITCHING Stop: 05/08/18 19:21 Diphenhydramine HCl (Benadryl) 50 mg PO Q6H PRN PRN Reason: MILD TO MODERATE ITCHING Diphtheria/Pertussis/Tetanus Vacc (Boostrix Vaccine Inj) 0.5 ml IM .ONCE ONE Stop: 05/08/18 16:01 Lactated Ringer's (Lr 1000 Ml Inj) 1,000 mls @ 100 mls/hr IV.CONT .Q10H [facility] Stop: 05/08/18 18:10 Oxytocin (Pitocin 30 Units/Ns 500 Ml Premix) 30 units in 500 mls @ 100 mls/hr IV.SIG PRN PRN PRN Reason: Heavy bleeding Stop: 05/08/18 22:10 Last Infusion: 05/08/18 00:27 Dose: Infused Ketorolac Tromethamine (Toradol Inj) 30 mg IM Q6H PRN PRN Reason: SEE LABEL COMMENTS Lidocaine HCl (Xylocaine 1% Inj) 10 ml INFILTRATN PRN PRN PRN Reason: For episiotomy repair Stop: 05/08/18 17:58 Measles/Mumps/Rubella Vaccine Live (M-M-R Ii Vaccine Inj) 0.5 ml SQ .ONCE ONE Stop: 05/08/18 16:01 Miscellaneous Information (Misc Nursing Information) 1 each OTHER UNSCH PRN PRN Reason: SEE LABEL COMMENTS Stop: 05/08/18 19:21 Miscellaneous Information (Misc Nursing Information) 1 each OTHER UNSCH PRN PRN Reason: SEE LABEL COMMENTS Stop: 05/08/18 19:21 Miscellaneous Information (Mis Nursing Information) 1 each OTHER UNSCH PRN PRN Reason: SEE LABEL COMMENTS Naloxone HCl (Narcan Inj) 0.4 mg IV.PUSH UNSCH PRN PRN Reason: SEE LABEL COMMENTS Stop: 05/08/18 19:21 Naloxone HCl (Narcan Inj) 0.4 mg IV.PUSH UNSCH PRN PRN Reason: SEE LABEL COMMENTS Ondansetron HCl (Zofran Inj) 4 mg IV.PUSH Q6H PRN PRN Reason: NAUSEA OR VOMITING Oxycodone/Acetaminophen (Percocet 5/325 Mg) 1 tab PO Q4H PRN PRN Reason: PAIN SCALE 3 TO 5 Oxycodone/Acetaminophen (Percocet 5/325 Mg) 2 tab PO Q4H PRN PRN Reason: PAIN SCALE 6 TO 10 Last Admin: 05/08/18 04:43 Dose: 2 tab Senna/Docusate Sodium (Natalie-Colace) 2 tab PO Q12H PRN PRN Reason: CONSTIPATION Simethicone (Mylicon Chew) 80 mg PO QID PRN PRN Reason: FLATULENCE Last Admin: 05/08/18 08:42 Dose: 80 mg Sodium Chloride (Ns Flush) 2 ml IV.FLUSH BID ALEJANDRA Sodium Chloride (Ns Flush) 2 ml IV.FLUSH PRN PRN PRN Reason: FLUSH AFTER USING IV ACCESS Zolpidem Tartrate (Ambien) 5 mg PO HS PRN PRN Reason: INSOMNIA Assessment and Plan - Diagnosis (1) S/P primary low transverse Code(s): Z98.891 - History of uterine scar from previous surgery Status: Acute (2) Pre-eclampsia in third trimester Code(s): O14.93 - Unspecified pre-eclampsia, third trimester Status: Acute (3) Arrested active phase of labor Code(s): O62.1 - Secondary uterine inertia Status: Acute - Plan 22 yo s/p primary LTCD on 7/7/18 for arrest of dilation/descent and intolerance of labor 1) POD#1 - ambulating & voiding, bandage in place, encouraged to shower, remove bandage today 2) PreEclampsia - BPs normotensive since delivery, symptoms resolved, did not require magnesium sulfate; ruled in based on 24h urine; not on anti- hypertensive meds 3) dispo - anticipate d/c to home POD#2 or POD#3 Note: pt was viewed by me in [facility] today 05/08/18, no Rx history found; new Rx for 3d supply on chart for day of discharge Discharge Planning: POD#2 or POD#3
[2018-05-08] MEDS: Senna/Docusate Sodium 8.6/50 MG Tablet PO PRN (10:52)
[2018-05-08] MEDS ORDERED: Measles/Mumps/Rubella Vaccine Inj 0.5 ML Vial SQ ONE (16:00)
[2018-05-08] MEDS ORDERED: Diphtheria/Tetanus/Pertussis Vaccine Inj 0.5 ML Syringe IM ONE (16:00)
[2018-05-09] MEDS: Ibuprofen 600 MG Tablet PO PRN ×4 (00:02→20:49)
--- NOTE | 2018-05-09 08:11 | P.PNOB ---
Subjective Post op day: 2 Interval history: pt c/o pain, +flatus, , wants to be discharged tomorrow Objective Vital Signs/I&O: Vital Signs 05/08/18 16:50 05/08/18 20:30 05/09/18 04:00 Temperature 98.7 F 99.0 F Pulse Rate 92 H 110 H Respiratory Rate 18 18 Blood Pressure 120/80 107/72 121/68 Result Diagrams: 05/08/18 08:20 Objective Remarks: GENERAL: Well-nourished, well-developed patient. CARDIOVASCULAR: Regular rate and rhythm without murmurs, gallops, or rubs. RESPIRATORY: Breath sounds equal bilaterally. No accessory muscle use. ABDOMEN/GI: Abdomen soft, non-tender, bowel sounds present. Incision: Clean, dry and intact. Fundus: Firm, non-tender at umbilicus. GENITOURINARY: Light to moderate bleeding. EXTREMITIES: No cyanosis or edema, non-tender, without signs of DVT. Medications and IVs: Active Medications Acetaminophen (Tylenol) 650 mg PO Q6H PRN PRN Reason: PAIN SCALE 1 TO 2 Diphenhydramine HCl (Benadryl) 50 mg PO Q6H PRN PRN Reason: MILD TO MODERATE ITCHING Ketorolac Tromethamine (Toradol Inj) 30 mg IM Q6H PRN PRN Reason: SEE LABEL COMMENTS Miscellaneous Information ([facility] [place] [facility] Information) 1 each OTHER UNSCH PRN PRN Reason: SEE LABEL COMMENTS Naloxone HCl (Narcan Inj) 0.4 mg IV.PUSH UNSCH PRN PRN Reason: SEE LABEL COMMENTS Ondansetron HCl (Zofran Inj) 4 mg IV.PUSH Q6H PRN PRN Reason: NAUSEA OR VOMITING Oxycodone/Acetaminophen (Percocet 5/325 Mg) 1 tab PO Q4H PRN PRN Reason: PAIN SCALE 3 TO 5 Oxycodone/Acetaminophen (Percocet 5/325 Mg) 2 tab PO Q4H PRN PRN Reason: PAIN SCALE 6 TO 10 Last Admin: 05/09/18 00:01 Dose: 2 tab Senna/Docusate Sodium (Natalie-Colace) 2 tab PO Q12H PRN PRN Reason: CONSTIPATION Last Admin: 05/08/18 10:52 Dose: 2 tab Simethicone (Mylicon Chew) 80 mg PO QID PRN PRN Reason: FLATULENCE Last Admin: 05/08/18 08:42 Dose: 80 mg Sodium Chloride (Ns Flush) 2 ml IV.FLUSH BID ALEJANDRA Sodium Chloride (Ns Flush) 2 ml IV.FLUSH PRN PRN PRN Reason: FLUSH AFTER USING IV ACCESS Zolpidem Tartrate (Ambien) 5 mg PO HS PRN PRN Reason: INSOMNIA Assessment and Plan - Diagnosis (1) S/P primary low transverse Code(s): Z98.891 - History of uterine scar from previous surgery Status: Acute (2) Pre-eclampsia in third trimester Code(s): O14.93 - Unspecified pre-eclampsia, third trimester Status: Acute (3) Arrested active phase of labor Code(s): O62.1 - Secondary uterine inertia Status: Acute Plan: POD #2 s/p LSTC doing well plan for discharge in AM pt counseled - Plan 22 yo s/p primary LTCD on 05/07/18 for arrest of dilation/descent and intolerance of labor 1) POD#2- ambulating & voiding, 2) PreEclampsia - BPs normotensive since delivery, symptoms resolved, did not require magnesium sulfate; ruled in based on 24h urine; not on anti- hypertensive meds 3) dispo - anticipate d/c to home POD#2 or POD#3 Note: pt was viewed by me in [facility] today 05/08/18, no Rx history found; new Rx for 3d supply on chart for day of discharge Discharge Planning: POD#3 - Attending Attestation pt seen by me
[2018-05-09] MEDS: Senna/Docusate Sodium 8.6/50 MG Tablet PO PRN (14:34)
[2018-05-10] MEDS: Senna/Docusate Sodium 8.6/50 MG Tablet PO PRN (05:02)
[2018-05-10] MEDS: Ibuprofen 600 MG Tablet PO PRN (05:02)
--- NOTE | 2018-05-10 08:23 | P.PNOB ---
Subjective Post op day: 3 Interval history: doing well, pain well controlled.min lochia Objective Vital Signs/I&O: Vital Signs 05/09/18 14:55 05/09/18 20:40 Temperature 98.0 F 97.9 F Pulse Rate 112 H 93 H Respiratory Rate 12 18 Blood Pressure 119/62 113/71 Result Diagrams: 05/08/18 08:20 Objective Remarks: GENERAL: Well-nourished, well-developed patient. CARDIOVASCULAR: Regular rate and rhythm without murmurs, gallops, or rubs. RESPIRATORY: Breath sounds equal bilaterally. No accessory muscle use. ABDOMEN/GI: Abdomen soft, non-tender, bowel sounds present. Incision: Clean, dry and intact. Fundus: Firm, non-tender at umbilicus. GENITOURINARY: Light to moderate bleeding. EXTREMITIES: No cyanosis or edema, non-tender, without signs of DVT. Medications and IVs: Active Medications Acetaminophen (Tylenol) 650 mg PO Q6H PRN PRN Reason: PAIN SCALE 1 TO 2 Diphenhydramine HCl (Benadryl) 50 mg PO Q6H PRN PRN Reason: MILD TO MODERATE ITCHING Ketorolac Tromethamine (Toradol Inj) 30 mg IM Q6H PRN PRN Reason: SEE LABEL COMMENTS Miscellaneous Information (Mis Nursing Information) 1 each OTHER UNSCH PRN PRN Reason: SEE LABEL COMMENTS Naloxone HCl (Narcan Inj) 0.4 mg IV.PUSH UNSCH PRN PRN Reason: SEE LABEL COMMENTS Ondansetron HCl (Zofran Inj) 4 mg IV.PUSH Q6H PRN PRN Reason: NAUSEA OR VOMITING Oxycodone/Acetaminophen (Percocet 5/325 Mg) 1 tab PO Q4H PRN PRN Reason: PAIN SCALE 3 TO 5 Oxycodone/Acetaminophen (Percocet 5/325 Mg) 2 tab PO Q4H PRN PRN Reason: PAIN SCALE 6 TO 10 Last Admin: 05/10/18 05:02 Dose: 2 tab Senna/Docusate Sodium (Natalie-Colace) 2 tab PO Q12H PRN PRN Reason: CONSTIPATION Last Admin: 05/10/18 05:02 Dose: 2 tab Simethicone (Mylicon Chew) 80 mg PO QID PRN PRN Reason: FLATULENCE Last Admin: 05/08/18 08:42 Dose: 80 mg Sodium Chloride (Ns Flush) 2 ml IV.FLUSH BID ALEJANDRA Last Admin: 05/10/18 07:30 Dose: Not Given Sodium Chloride (Ns Flush) 2 ml IV.FLUSH PRN PRN PRN Reason: FLUSH AFTER USING IV ACCESS Zolpidem Tartrate (Ambien) 5 mg PO HS PRN PRN Reason: INSOMNIA Assessment and Plan - Diagnosis (1) S/P primary low transverse Code(s): Z98.891 - History of uterine scar from previous surgery Status: Acute (2) Pre-eclampsia in third trimester Code(s): O14.93 - Unspecified pre-eclampsia, third trimester Status: Acute (3) Arrested active phase of labor Code(s): O62.1 - Secondary uterine inertia Status: Acute Plan: POD #3 s/p LTCD doing well plan for discharge in AM pt counseled - Plan 22 yo s/p primary LTCD on 05/07/18 for arrest of dilation/descent and intolerance of labor 1) POD#3- ambulating & voiding, pain well controlled 2) PreEclampsia - BPs normotensive since delivery, symptoms resolved, did not require magnesium sulfate; ruled in based on 24h urine; not on anti- hypertensive meds 3) dispo - anticipate d/c to home POD#3 Dr Haynes reviewed [facility] 05/08/18, no Rx history found; new Rx for 3d supply on chart for day of discharge Discharge Planning: POD#3
== END 2018-05-10 11:13 | disposition home or self-care (01) ==
LOC: H2E 16:36 → H1EA 05-07 18:28
PROVIDERS: ADMIT Obstetrics & Gynecology; ATTEND Obstetrics & Gynecology